=== PATIENT | male | born 1955 | race Caucasian/White ===

== ENCOUNTER 2018-03-27 18:22 | Emergency (ER) | payer BC, OTHER ==
[2018-03-27 19:03] VITALS: BP 145/93
--- NOTE | 2018-03-27 19:16 | UC ---
Respiratory Complaint HPI - HPI Summary HPI Summary: Patient to the urgent care today with cough nasal congestion complains of postnasal drip - History of Current Complaint Chief Complaint: UCGeneralIllness Stated Complaint: FEVER/COUGH Time Seen by Provider: 03/27/18 20:00 Hx Obtained From: Patient Onset/Duration: Gradual Onset, Lasting Days, Still Present Timing: Constant Severity Currently: None Pain Intensity: 0 Character: Cough: Nonproductive Aggravating Factors: Nothing Alleviating Factors: Nothing Associated Signs And Symptoms: Positive: Nasal Congestion, Sinus Discomfort - Allergies/Home Medications Allergies/Adverse Reactions: Allergies Allergy/AdvReac Type Severity Reaction Status Date / Time amiodarone Allergy Shakes Verified 03/27/18 19:06 iv contrast dye Allergy Sneezing Uncoded 03/27/18 19:06 Home Medications: Home Medications Atorvastatin* [Lipitor*] 40 mg PO 1700 03/27/18 [History Confirmed 03/27/18] Cholecalciferol TAB* [Vitamin D TAB*] 400 unit PO DAILY 03/27/18 [History Confirmed 03/27/18] Digoxin TAB* [Lanoxin TAB*] 0.125 mg PO DAILY 03/27/18 [History Confirmed ] Multivitamin [Multivitamins] 1 cap PO DAILY 03/27/18 [History Confirmed 03/27/18 ] Warfarin TAB(*) [Coumadin TAB(*)] 5 mg PO 1700 03/27/18 [History Confirmed 03/27] guaiFENesin [Mucinex] 600 mg PO DAILY 03/27/18 [History Confirmed 03/27/18] PMH/Surg Hx/FS Hx/Imm Hx Previously Healthy: No Endocrine History: Dyslipidemia Cardiovascular History: Atrial Fibrillation - Surgical History Surgical History: Yes Surgery Procedure, Year, and Place: pacemaker 2012. appendectomy - Family History Known Family History: Positive: None - Social History Occupation: Retired Lives: With Family Alcohol Use: Occasionally Substance Use Type: None Smoking Status (MU): Former Smoker Type: Cigars Length of Time of Smoking/Using Tobacco: 2011 Review of Systems Constitutional: Negative Skin: Negative Eyes: Negative ENT: Sore Throat, Nasal Discharge, Sinus Congestion Respiratory: Cough Cardiovascular: Negative Gastrointestinal: Negative Genitourinary: Negative Motor: Negative Neurovascular: Negative Musculoskeletal: Negative Neurological: Negative Psychological: Negative Is Patient Immunocompromised?: No All Other Systems Reviewed And Are Negative: Yes Physical Exam Triage Information Reviewed: Yes Appearance: Well-Appearing, No Pain Distress, Well-Nourished Vital Signs: Initial Vital Signs Temp 99.7 F 03/27/18 18:52 Pulse 66 03/27/18 18:52 Resp 18 03/27/18 18:52 BP 145/93 03/27/18 18:52 Pulse Ox 100 03/27/18 18:52 Vital Signs Reviewed: Yes Eye Exam: Normal Eyes: Positive: Conjunctiva Clear ENT Exam: Normal ENT: Positive: Normal ENT inspection, Hearing grossly normal, Pharynx normal, Nasal congestion, Nasal drainage, TMs normal, Uvula midline. Negative: Tonsillar swelling, Trismus, Muffled voice, Hoarse voice, Dental tenderness, Sinus tenderness Dental Exam: Normal Neck exam: Normal Neck: Positive: Supple, Nontender, No Lymphadenopathy Respiratory Exam: Normal Respiratory: Positive: Chest non-tender, Lungs clear, Normal breath sounds, No respiratory distress, No accessory muscle use Cardiovascular Exam: Normal Cardiovascular: Positive: RRR, No Murmur, Pulses Normal, Brisk Capillary Refill Musculoskeletal Exam: Normal Musculoskeletal: Positive: Strength Intact, ROM Intact, No Edema Neurological Exam: Normal Neurological: Positive: Alert, Muscle Tone Normal Psychological Exam: Normal Skin Exam: Normal UC Diagnostic Evaluation - Laboratory O2 Sat by Pulse Oximetry: 100 Respiratory Course/Dx - Course Course Of Treatment: flonase nasal spray, tessalon caps, increase fluids, follow with pcp - Differential Dx/Diagnosis Provider Diagnoses: post nasal drip hypertension Discharge - Sign-Out/Discharge Documenting (check all that apply): Discharge/Admit/Transfer - Discharge Plan Condition: Stable Disposition: HOME Prescriptions: Benzonatate CAP* [Tessalon 100 MG CAP*] 100 - 200 mg PO TID PRN #40 cap PRN Reason: cough Fluticasone NASAL SPRAY 50MCG* [Flonase NASAL SPRAY 50MCG*] 2 spray BOTH NARES DAILY #1 btl Patient Education Materials: Hypertension (ED), How to Use Nasal [place] (ED), Postnasal Drip (DC) Referrals: Asmita Zarco PA [Primary Care Provider] - 1 Week - Billing Disposition and Condition Condition: STABLE Disposition: HOME
== END 2018-03-27 20:00 | disposition home or self-care (01) ==
LOC: UCCORT 18:22
DX: R09.82 Postnasal drip (principal); I10 Essential (primary) hypertension; Z88.8 Allergy status to other drugs, medicaments and biological substances; Z91.041 Radiographic dye allergy status; E78.5 Hyperlipidemia, unspecified; I48.91 Unspecified atrial fibrillation; Z87.891 Personal history of nicotine dependence
CPT/HCPCS: 99202; G0463